=== PATIENT | female | born 1965 ===

== ENCOUNTER → 2023-11-12 18:30 | Outpatient (REF) | payer BC, SELFPAY ==
[2023-11-17 06:10] LABS: G6PD Quant Test 251 (127-427); Red Blood Cell Count Test/G6PD 4.74 x10E6/uL (3.77-5.28)
== END ==
LOC: LAB 18:30
PROVIDERS: Referring Provider Nurse Practitioner Family; Visit Provider Nurse Practitioner Family
DX: A69.20 Lyme disease, unspecified (principal); G89.29 Other chronic pain; R53.82 Chronic fatigue, unspecified; R45.4 Irritability and anger
CPT/HCPCS: 82955